=== PATIENT | female | born 1930 | race Two or more races ===

== ENCOUNTER 2017-12-16 21:49 | Emergency (ER) | payer BC, MEDICAID ==
[~2017-12-16] VITALS: Ht 154.9 cm; Wt 59.9 kg
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
--- NOTE | 2017-12-16 22:10 | NUR ---
Dr. Silverman at bedside for MSE.
[2017-12-16] MEDS ORDERED: IBUPROFEN 400 MG TABLET ONE (22:22)
[2017-12-16] MEDS ORDERED: IBUPROFEN 400 MG TABLET PO ONE (22:30)
--- NOTE | 2017-12-16 22:45 | NUR ---
Assisted patient to bathroom has steady gait. Patient out of ER for CT via wheelchair.
--- NOTE | 2017-12-16 23:18 | NUR ---
Patient back to ER from CT.
--- NOTE | 2017-12-17 00:32 | NUR ---
Patient in bed, talking to grandsons, no acute signs of distress.
--- NOTE | 2017-12-17 01:00 | NUR ---
Patient discharged to home in stable conditon. Written and verbal after care instructions given. Patient verbalizes understanding of instructions. Patient ambulated out of ER with steady gait, VSS, no acute signs of distress, all belongings taken, to be driven by grandsons via private vehicle.
[2017-12-17 01:07] VITALS: BP 150/70
== END 2017-12-17 01:00 | disposition home or self-care (01) ==
LOC: ER 21:50
DX: S80.01XA Contusion of right knee, initial encounter (principal); S80.02XA Contusion of left knee, initial encounter; V43.62XA Car passenger injured in collision with other type car in traffic accident, initial encounter; Y92.410 Unspecified street and highway as the place of occurrence of the external cause; Y93.89 Activity, other specified; Y99.8 Other external cause status
CPT/HCPCS: 70450; 72125; 72131; A4663